=== PATIENT | male | born 1990 | race Two or more races ===

== ENCOUNTER 2018-09-15 09:03 | Outpatient (CLI) | payer OTHER | END 2018-09-15 09:19 | disposition home or self-care (01) | LOC: LAB 09:03 | DX: H16.141 Punctate keratitis, right eye (principal) ==

== ENCOUNTER 2018-10-10 08:27 | Outpatient (CLI) | payer OTHER | END 2018-10-10 09:06 | disposition home or self-care (01) | LOC: LAB 08:27 | DX: L98.498 Non-pressure chronic ulcer of skin of other sites with other specified severity (principal) ==